=== PATIENT | male | born 1990 | race Caucasian/White ===

== ENCOUNTER 2021-03-22 09:31 | Day surgery (SDC) | payer OTHER ==
[~2021-03-22] VITALS: Ht 175.3 cm; Wt 110.0 kg
[~2021-03-22 09:31] MED LIST: ACET1TAB33 PO; BUPIVACAINE MPF 0.5% 30 ML VIAL. ONE; CLINDAMYCIN 900MG PREMIX 50 ML IV PRN; DEXAMETHASONE SOD PHOS 4 MG/ML VIAL ONE; HYDROmorphone 2 MG/ML VIAL IVP PRN; IBUP800T19 PO; IV RINGERS,LACTATED 1000ML 1,000 ML IV SCH; KETOROLAC 30 MG/ML VIAL. ONE; LIDOCAINE 2% PF 5 ML VIAL. ONE; MIDAZOLAM HCL/PF 2 MG/2 ML VIAL. ONE; ONDANSETRON PF 4 MG/2 ML VIAL. ONE; PROCHLORPERAZINE 10 MG/2 ML VIAL. IVP PRN; PROPOFOL 10 MG/ML (20ML) VIAL. IV ONE; SEVOFLURANE 61 TO 120 MINUTES. IH ONE; fentaNYL PF VIAL 100 MCG/2 ML VIAL IVP PRN; fentaNYL PF VIAL 100 MCG/2 ML VIAL ONE
[2021-03-22 09:59] VITALS: BP 136/89
[2021-03-22] MEDS ORDERED: OXYC5CAP PO (10:02)
[2021-03-22] MEDS ORDERED: IBUP-1060 PO (10:04)
--- NOTE | 2021-03-22 10:05 | DISCH ---
DISCHARGE INSTRUCTIONS Condition on Discharge Condition on Discharge: Stable Activity After Discharge Activity Instructions for Disc: Activity as tolerated Other activity instructions: No use of the left upper extremity as far as pushing or pulling or lifting Bathing Instructions: Shower-keep dressing dry Lifting Instructions after Dis: Do not lift >10 pounds Exercise Instruction after Dis: Progress as tolerated Weight Bearing Status after Di: Full weight bearing Wound Incision Care Wound/Incision Care: Ice to area for comfort Other wound/incision instructi: Keep splint and dressings completely intact until follow-up in 14 days Wound Care Equipment: Dressings Follow-Up Follow up with: 14 days RACHANA BETTENCOURT Jr. DO Mar 22, 2021 10:05
[2021-03-22] MEDS ORDERED: BUPIVACAINE MPF 0.5% 30 ML VIAL. IJ ONE (10:40)
[2021-03-22] MEDS ORDERED: PROPOFOL 10 MG/ML (20ML) VIAL. IV ONE (11:05)
[2021-03-22] MEDS ORDERED: DEXAMETHASONE SOD PHOS 4 MG/ML VIAL ONE (11:05)
[2021-03-22] MEDS ORDERED: MORPHINE SULFATE 2 MG/ML INJ. ONE (11:20)
[2021-03-22] MEDS ORDERED: PROCHLORPERAZINE 10 MG/2 ML VIAL. ONE (11:20)
[2021-03-22] MEDS ORDERED: fentaNYL PF VIAL 100 MCG/2 ML VIAL ONE (11:20)
[2021-03-22] MEDS: MORPHINE SULFATE 2 MG/ML INJ. IVP PRN ×2 (11:50→12:05)
[2021-03-22] MEDS ORDERED: oxyCODONE IR 5 MG TABLET ONE (12:09)
--- NOTE | 2021-03-22 12:11 | PDOC4 ---
OPERATIVE NOTE Date: Date: Mar 22, 2021 Pre-Op Diagnosis: Displaced fracture second metacarpal left hand Post-Op Diagnosis: Same Procedure Performed: ORIF left second metacarpal Surgeon: Destinee Anesthesia Type: General Blood Loss: 5 cc Specimans Obtained: None Findings: See dictation Complications: None RACHANA BETTENCOURT Jr. DO Mar 22, 2021 12:11
[2021-03-22] MEDS ORDERED: oxyCODONE IR 5 MG TABLET PO ONE (12:15)
[2021-03-22] MEDS ORDERED: IBUPROFEN 400 MG TABLET. PO ONE (12:15)
[2021-03-22 12:30] VITALS: BP 130/77
--- NOTE | 2021-03-22 12:47 | OP ---
DATE OF SURGERY: 03/22/2021 PREOPERATIVE DIAGNOSIS: Displaced fracture, index finger, metacarpal, left. POSTOPERATIVE DIAGNOSIS: Displaced fracture, index finger, metacarpal, left. PROCEDURE: Open reduction internal fixation, left second metacarpal. SURGEON: Aram Felipe Jr, DO PROMOTIONS ASSOCIATE: Ken Kohler. ANESTHESIA: General. COMPLICATIONS: None. ESTIMATED BLOOD LOSS: 10 mL. Standard dictation for the teacher's assistant. DESCRIPTION OF PROCEDURE: The patient was taken to the operative suite, given a general anesthetic. Left upper extremity was then prepped and draped in the sterile fashion. Several attempts at closed reduction and pinning were unsuccessful. Therefore, an incision was made through skin and subcutaneous tissues down to the extensor tendon, which was identified, also a sensory branch of the nerve was also identified and all these were protected. There was interposed soft tissue between the metacarpal fragments. Therefore, after this was removed, a closed reduction was undertaken. The reduction was held with a forceps. This was then clamped, noted to be very stable at this point. Two 2.3 screws were then placed using standard lag fashion from a radial to ulnar direction. This was overdrilled first followed by the smaller drill and these had excellent compression and fixation of the fracture and this was completely reduced with no rotational deformity noted of the digits of the hand and the metacarpal was completely lined up. The wound was then thoroughly irrigated. The skin was reapproximated. Sterile dressing was then applied along with a volar splint. The patient was then taken from the operative bed to the postoperative bed, taken to the PACU in stable condition. CRYSATL/JIM DR: Eddie TID: [id number]
== END 2021-03-22 13:20 | disposition home or self-care (01) ==
LOC: SURG 09:31
PROVIDERS: ATTEND Orthopaedic Surgery
DX: S62.301A Unspecified fracture of second metacarpal bone, left hand, initial encounter for closed fracture (principal); Z79.899 Other long term (current) drug therapy; Z98.890 Other specified postprocedural states; Z88.0 Allergy status to penicillin; X58.XXXA Exposure to other specified factors, initial encounter; Y93.89 Activity, other specified; Y92.89 Other specified places as the place of occurrence of the external cause; Y99.8 Other external cause status
CPT/HCPCS: 26615; A4209; A4930; A6402; A6449; C1713; J0780; J1100; J1885; J2250; J2270; J2405; J2704; J3010; J3490